=== PATIENT | female | born 1955 | race Caucasian/White ===

== ENCOUNTER 2016-09-03 19:28 | Emergency (ER) | payer MEDICAID ==
[~2016-09-03] VITALS: Ht 157.5 cm; Wt 70.0 kg
[~2016-09-03 19:28] MED LIST: ACET-141 PO; ASPI-535 PO; CALCIUM PO; CIPR-193 PO; HYDR-3498 PO; METR250T PO; NORVASC PO; ONDA4TAB8 PO; [UNRECOGNIZED DRUG - REMARK] PO
[2016-09-03 19:32] VITALS: Ht 157.5 cm; Wt 70.0 kg
[2016-09-03] MEDS ORDERED: morphine 2 MG INJ IV STA (23:21)
[2016-09-03] MEDS ORDERED: SOD CHLORIDE 0.9% 500 ML IV STA (23:21)
[2016-09-03] MEDS ORDERED: ONDANSETRON 4 MG INJ IV STA (23:21)
--- NOTE | 2016-09-04 00:14 | RADRPT ---
PROCEDURE: XR Chest. CLINICAL INDICATION: Chest pain. TECHNIQUE: Portable AP upright view of the chest was obtained. COMPARISON: 06/26/2014 FINDINGS: The cardiomediastinal silhouette is within normal limits. The lungs are clear. There is no evidenc e for pleural effusion, pneumothorax or pulmonary vascular congestion. The osseous structures are i ntact with no evidence for acute abnormality. RPTAT:HJJR IMPRESSION: No evidence for acute intrathoracic pathology or interval change from 06/26/2014. Physician Tabatha Date Time Electronically viewed and signed by Alvarado Cooper Physician on 09/04/2016 00:13 JR/
[2016-09-04 00:29] LABS: ADD SCAN DIFF NO
[2016-09-04 00:30] LABS: BASOPHIL # 0.1 10^3/ul (0.0-0.1); BASOPHILS % 0.5 % (0.0-2.0); EOSINOPHILS # 1.2 10^3/ul (0.0-0.5); EOSINOPHILS % 11.2 % (0.0-7.0); HEMATOCRIT 36.2 % (37.0-47.0); HEMOGLOBIN 11.3 g/dl (12.0-16.0); LYMPHOCYTES # 3.9 10^3/ul (0.8-2.9); LYMPHOCYTES % 35.3 % (15.0-51.0); MEAN CORPUSCULAR HEMOGLOBIN 26.3 pg (29.0-33.0); MEAN CORPUSCULAR HGB CONC 31.2 g/dl (32.0-37.0); MEAN CORPUSCULAR VOLUME 84.4 fl (82.0-101.0); MEAN PLATELET VOLUME 10.6 fl (7.4-10.4); MONOCYTE # 0.8 10^3/ul (0.3-0.9); MONOCYTES % 7.4 % (0.0-11.0); NEUTROPHILS % 45.2 % (39.0-77.0); PLATELET COUNT 502 10^3/UL (140-415); RED BLOOD COUNT 4.29 10^6/ul (4.20-5.40); RED CELL DISTRIBUTION WIDTH 14.4 % (11.5-14.5); WHITE BLOOD COUNT 10.9 10^3/ul (4.8-10.8)
[2016-09-04 00:31] LABS: ADD UMIC NO; URINE BILIRUBIN (Dip) NEGATIVE (NEGATIVE); URINE BLOOD (Dip) NEGATIVE (NEGATIVE); URINE COLOR LT. YELLOW (YELLOW); URINE GLUCOSE (Dip) NEGATIVE (NEGATIVE); URINE KETONES (Dip) NEGATIVE (NEGATIVE); URINE LEUKOCYTE ESTERASE (Dip) NEGATIVE (NEGATIVE); URINE NITRITE (Dip) NEGATIVE (NEGATIVE); URINE TOTAL PROTEIN (Dip) NEGATIVE (NEGATIVE); URINE UROBILINOGEN (Dip) 0.2 E.U./dL (0.1-1.0)
[2016-09-04 00:38] LABS: INR 0.92; PROTIME 12.4 Sec (12.2-14.2)
[2016-09-04 00:39] LABS: PARTIAL THROMBOPLASTIN TIME 29.3 Sec (25.0-35.0)
[2016-09-04 00:40] LABS: ALANINE AMINOTRANSFERASE 17 IU/L (13-69); ALBUMIN 4.6 g/dl (3.3-4.9); ALBUMIN/GLOBULIN RATIO 1.12; ALKALINE PHOSPHATASE 109 IU/L (42-121); ANION GAP 13 (8-16); ASPARTATE AMINO TRANSFERASE 28 IU/L (15-46); BILIRUBIN,INDIRECT 0.2 mg/dl (0-1.1); BILIRUBIN,TOTAL 0.2 mg/dl (0.2-1.3); BLOOD UREA NITROGEN 18 mg/dl (7-20); CALCIUM 9.7 mg/dl (8.4-10.2); CARBON DIOXIDE 26 mmol/L (21-31); CHLORIDE 106 mmol/L (97-110); CREATININE 0.86 mg/dl (0.44-1.00); GLUCOSE 129 mg/dl (70-220); POTASSIUM 3.7 mmol/L (3.5-5.1); SODIUM 141 mmol/L (135-144); TOTAL PROTEIN 8.7 g/dl (6.1-8.1)
[2016-09-04 00:52] LABS: B-TYPE NATRIURETIC PEPTIDE 136 PG/ML (0-125)
[2016-09-04] MEDS ORDERED: hydrALAzine 20 MG INJ IV ONE (01:00)
[2016-09-04 01:07] LABS: TROPONIN-I < 0.012 ng/ml (0.00-0.12)
--- NOTE | 2016-09-04 01:58 | RADRPT ---
PROCEDURE: CT Brain without contrast. CLINICAL INDICATION: Altered level of consciousness. TECHNIQUE: A CT of the brain was performed on a multislice detector CT scanner utilizing axial sec tions from the skull base through the vertex without contrast. Images were reviewed on a high-resolu [employer] PACS workstation. Exam CTDlvol = 45 mGy and DLP = 720 mGy-cm. One of the following 3 dose red uction techniques were used: Automated exposure control; adjustment of the mA and/or kV according to patient size; or use of iterative reconstruction technique. COMPARISON: None available FINDINGS: There is age appropriate central and peripheral atrophy. There is no midline shift. There is small left parietal subcortical white matter hypodensity. There is no definite acute stroke. There is n o intracranial hemorrhage or abnormal extra-axial fluid collection. There is right maxillary sinus and bilateral ethmoid air cell mucosal thickening.. IMPRESSION: 1. No acute intracranial abnormality. 2. Minimal left parietal white matter changes most commonly seen with microvascular ischemic diseas e. 3. Mild paranasal sinus disease. RPTAT: HMVK .Yovanny Montague MD, Date Time Electronically viewed and signed by .Yovanny Montague MD, on 09/04/2016 01:58 .K/
--- NOTE | 2016-09-04 02:01 | ERD ---
ER Documentation Chief Complaint Date/Time DATE: 09/04/16 TIME: 02:00 Chief Complaint DIZZY/AVILA SINCE , +CP/SOB +PAINFUL URINATION HPI This is a 6) a headache since . Is also mildly painful urination as well. Denies any fevers or chills. Denies any other current complaints. She said she felt dizzy with the room spinning. Denies any focal neurological complaints. Denies any changes in visual acuity. Denies any palpitations. Denies any other current issues. Patient denies chest pain initially stated in triage. ROS All systems reviewed and are negative except as per history of present illness. Medications Home Meds Active Scripts Hydralazine Hcl* (Hydralazine Hcl*) 50 Mg Tab, 50 MG PO Q8, #90 TAB Prov:JONNA HALEGerardo 09/04/16 Reported Medications Acetaminophen* (Acetaminophen*) 500 MG Extra Strength Tablet, 500 MG PO Q4H Y for PAIN, TAB 07/16/14 [Stomach Med Otc] No Conflict Check, PO 07/16/14 [Norvasc] No Conflict Check, PO 07/16/14 [Calcium] No Conflict Check, PO 15 Aspirin Ec (Aspir 81) 81 Mg Tablet.dr, 81 MG PO DAILY, TAB 07/16/14 Ciprofloxacin Hcl* (Ciprofloxacin Hcl*) Unknown Strength Tablet, PO BID, TAB 11/29/13 Metronidazole* (Flagyl*) Unknown Strength Tablet, PO Q6, TAB 14 Ondansetron Hcl* (Zofran*) Unknown Strength Tablet, PO Q6H Y for NAUSEA AND OR VOMITING, TAB 11/29/13 Hydrocodone Bit-Acetaminophen* ([place]*) Unknown Strength Tab, PO Q4H Y for PAIN , TAB 11/29/13 Allergies Allergies: Coded Allergies: No Known Allergy (Unverified , 11/29/13) PMhx/Soc History of Surgery: Yes (HYSTERECTOMY, LEFT LUMPECTOMY) Anesthesia Reaction: No Hx Neurological Disorder: No Hx Respiratory Disorders: No Hx Cardiac Disorders: Yes (HIGH CHOLESTEROL, HTN) Hx Psychiatric Problems: No Hx Miscellaneous Medical Probl: No Hx Alcohol Use: No Hx Substance Use: No Hx Tobacco Use: No Smoking Status: Never smoker Physical Exam Vitals Vital Signs Date Time Temp Pulse Resp B/P Pulse Ox O2 Delivery O2 Flow Rate FiO2 09/04/16 04:43 82 18 141/77 98 Room Air 86 148/79 09/04/16 04:41 71 16 141/69 99 Room Air 09/04/16 03:58 67 18 149/67 100 Nasal Cannula 2.0 09/04/16 03:25 57 28 64/40 100 Room Air 09/04/16 02:54 98.7 73 17 146/65 99 Room Air 09/04/16 00:30 99.0 67 20 195/91 99 Room Air 09/03/16 19:32 99.2 89 20 173/88 100 Physical Exam Const: [] Head: Atraumatic Eyes: Normal Conjunctiva ENT: Normal External Ears, Nose and Mouth. Neck: Full range of motion..~ No meningismus. Resp: Clear to auscultation bilaterally Cardio: Regular rate and rhythm, no murmurs Abd: Soft, non tender, non distended. Normal bowel sounds Skin: No petechiae or rashes Back: No midline or flank tenderness Ext: No cyanosis, or edema Neur: Awake and alert Psych: Normal Mood and Affect Result Diagram: 09/03/16 2356 09/03/16 2356 Results 24 hrs Laboratory Tests Test 09/03/16 23:56 White Blood Count 10.910^3/ul Red Blood Count 4.2910^6/ul Hemoglobin 11.3g/dl Hematocrit 36.2% Mean Corpuscular Volume 84.4fl Mean Corpuscular Hemoglobin 26.3pg Mean Corpuscular Hemoglobin Concent 31.2g/dl Red Cell Distribution Width 14.4% Platelet Count 02838^3/UL Mean Platelet Volume 10.6fl Neutrophils % 45.2% Lymphocytes % 35.3% Monocytes % 7.4% Eosinophils % 11.2% Basophils % 0.5% Nucleated Red Blood Cells % 0.0/100WBC Neutrophils # 5.010^3/ul Lymphocytes # 3.910^3/ul Monocytes # 0.810^3/ul Eosinophils # 1.210^3/ul Basophils # 0.110^3/ul Nucleated Red Blood Cells # 0.010^3/ul Prothrombin Time 12.4Sec Prothrombin Time Ratio 1.0 INR International Normalized Ratio 0.92 Activated Partial Thromboplast Time 29.3Sec Urine Color LT. YELLOW Urine Clarity CLEAR Urine pH 6.0 Urine Specific [place] 1.025 Urine Ketones NEGATIVE Urine Nitrite NEGATIVE Urine Bilirubin NEGATIVE Urine Urobilinogen 0.2 E.U./dL Urine Leukocyte Esterase NEGATIVE Urine Hemoglobin NEGATIVE Urine Glucose NEGATIVE% Urine Total Protein NEGATIVE Sodium Level 141mmol/L Potassium Level 3.7mmol/L Chloride Level 106mmol/L Carbon Dioxide Level 26mmol/L Anion Gap 13 Blood Urea Nitrogen 18mg/dl Creatinine 0.86mg/dl Glucose Level 129mg/dl Calcium Level 9.7mg/dl Total Bilirubin 0.2mg/dl Direct Bilirubin 0.00mg/dl Indirect Bilirubin 0.2mg/dl Aspartate Amino Transf (AST/SGOT) 28IU/L Alanine Aminotransferase (ALT/SGPT) 17IU/L Alkaline Phosphatase 109IU/L Troponin I < 0.012ng/ml B-Type Natriuretic Peptide 136PG/ML Total Protein 8.7g/dl Albumin 4.6g/dl Globulin 4.10g/dl Albumin/Globulin Ratio 1.12 Current Medications Medications (Trade) Dose Ordered Sig/Roseanna Route PRN Reason Start Time Stop Time Status Last Admin Dose Admin Sodium Chloride (NS) 500 ml @ 500 mls/hr Q1H STAT IV 09/03/16 23:21 09/04/16 00:20 DC 09/04/16 00:08 Morphine Sulfate (morphine) 2 mg ONCE STAT IV 09/03/16 23:21 09/03/16 23:22 DC 09/04/16 00:08 Ondansetron HCl (Zofran Inj) 4 mg ONCE STAT IV 09/03/16 23:21 09/03/16 23:22 DC 09/04/16 00:08 Hydralazine HCl 10 mg 10 mg ONCE ONCE IV 09/04/16 01:00 09/04/16 01:01 DC 09/04/16 01:45 Sodium Chloride (NS) 1,000 ml @ 1,000 mls/hr Q1H ONCE IV 09/04/16 03:30 09/04/16 04:29 DC 09/04/16 03:37 Ondansetron HCl (Zofran Inj) 4 mg ONCE STAT IV 09/04/16 05:02 09/04/16 05:09 DC 09/04/16 05:13 Procedures/MDM EKG: Rate/Rhythm: Normal Sinus Rhythm QRS, ST, T-waves: No changes consistent w/ acute ischemia Impression: No evidence of ischemia or arrhythmia Chest X-ray 1V Interpreted by me: Soft Tissue: No acute abnormalities Bones: No acute abnormalities Mediastinum/Cardiac Silhouette/Lungs: No acute abnormalities Patient's thoracic symptoms have stabilized while in the department and are stable for outpatient follow up. Exam and work up not consistent w/ ischemia, arrhythmia, PE or dissection. Patient's neurologic symptoms have stabilized while they have been evaluated in the department and are appropriate for outpatient work up. No e/o meningitis, intracranial bleed, seizure, stroke. Patient symptomology likely secondary to elevated blood pressure. Patient was discharged on hydralazine. Follow-up with PMD. Return for worsening symptoms. Patient had a near syncopal episode upon discharge in the [facility]. At this point patient is brought back in. At this point patient will be admitted for near syncope to hospitalist. Departure Diagnosis: Primary Impression: Dizziness Additional Impression: Syncope Syncope type: unspecified Qualified Code: R55 - Syncope, unspecified syncope type Condition: Serious JONNA HALE Sep 04, 2016 02:00
[2016-09-04] MEDS ORDERED: APR50 PO (02:12)
[2016-09-04] MEDS ORDERED: SOD CHLORIDE 0.9% 1,000 ML IV ONE (03:30)
[2016-09-04] MEDS ORDERED: ONDANSETRON 4 MG INJ IV STA (05:02)
[2016-09-04] MEDS ORDERED: NACL 0.9% 3 ML SYG IV SCH (07:00)
[2016-09-04] MEDS ORDERED: ONDANSETRON 4 MG INJ IV PRN (07:00)
[2016-09-04] MEDS ORDERED: NITROGLYCERIN (SL) 0.4 MG TAB SL PRN (07:00)
[2016-09-04] MEDS ORDERED: morphine 2 MG INJ IV PRN (07:00)
[2016-09-04] MEDS ORDERED: ACETAMINOPHEN 325 MG TAB PO PRN (07:00)
[2016-09-04] MEDS ORDERED: ALBUTEROL/IPRATROPIUM (NEB) 3 ML AMP HHN PRN (07:00)
[2016-09-04 08:06] LABS: ADD SCAN DIFF NO
[2016-09-04 08:18] LABS: BASOPHILS % 0.3 % (0.0-2.0); EOSINOPHILS # 0.8 10^3/ul (0.0-0.5); EOSINOPHILS % 6.5 % (0.0-7.0); HEMATOCRIT 35.5 % (37.0-47.0); HEMOGLOBIN 10.9 g/dl (12.0-16.0); LYMPHOCYTES # 3.2 10^3/ul (0.8-2.9); LYMPHOCYTES % 25.3 % (15.0-51.0); MEAN CORPUSCULAR HEMOGLOBIN 26.2 pg (29.0-33.0); MEAN CORPUSCULAR HGB CONC 30.7 g/dl (32.0-37.0); MEAN CORPUSCULAR VOLUME 85.3 fl (82.0-101.0); MEAN PLATELET VOLUME 10.9 fl (7.4-10.4); MONOCYTE # 0.7 10^3/ul (0.3-0.9); MONOCYTES % 5.5 % (0.0-11.0); NEUTROPHIL # 7.9 10^3/ul (1.6-7.5); NEUTROPHILS % 61.9 % (39.0-77.0); PLATELET COUNT 437 10^3/UL (140-415); RED BLOOD COUNT 4.16 10^6/ul (4.20-5.40); RED CELL DISTRIBUTION WIDTH 14.6 % (11.5-14.5); WHITE BLOOD COUNT 12.7 10^3/ul (4.8-10.8)
[2016-09-04 08:43] LABS: ALANINE AMINOTRANSFERASE 18 IU/L (13-69); ALBUMIN 4.1 g/dl (3.3-4.9); ALBUMIN/GLOBULIN RATIO 1.07; ALKALINE PHOSPHATASE 105 IU/L (42-121); ANION GAP 11 (8-16); ASPARTATE AMINO TRANSFERASE 30 IU/L (15-46); BILIRUBIN,INDIRECT 0.3 mg/dl (0-1.1); BILIRUBIN,TOTAL 0.3 mg/dl (0.2-1.3); BLOOD UREA NITROGEN 14 mg/dl (7-20); CALCIUM 9.3 mg/dl (8.4-10.2); CARBON DIOXIDE 23 mmol/L (21-31); CHLORIDE 111 mmol/L (97-110); CHOL/HDL RATIO 3.2 RATIO; CHOLESTEROL 211 mg/dl (100-200); CREATINE KINASE 57 IU/L (23-200); CREATININE 0.72 mg/dl (0.44-1.00); GLUCOSE 105 mg/dl (70-220); HDL CHOLESTEROL 65 mg/dl (35-98); MAGNESIUM 2.1 mg/dl (1.7-2.5); SODIUM 141 mmol/L (135-144); TOTAL PROTEIN 7.9 g/dl (6.1-8.1); TRIGLYCERIDES 126 mg/dl (0-149)
[2016-09-04 08:50] LABS: CK-MB 0.58 ng/ml (0.0-2.4)
[2016-09-04 08:52] LABS: TROPONIN-I < 0.012 ng/ml (0.00-0.12)
[2016-09-04] MEDS ORDERED: ASPIRIN 81 MG TAB PO SCH (09:00)
[2016-09-04] MEDS ORDERED: ENOXAPARIN 40 MG/0.4 ML SYG SC SCH (09:00)
[2016-09-04 09:48] VITALS: BP 148/91; PULSE 95; RESP 16; TEMP 98.2
--- NOTE | 2016-09-04 10:00 | RADRPT ---
PROCEDURE: US Carotids. CLINICAL INDICATION: Dizziness TECHNIQUE: Multiple sonographic of the carotid arteries were obtained utilizing gunderson scale imaging . Color and Doppler imaging was performed. The images were reviewed on a PACS workstation. COMPARISON: No prior studies are available for comparison. FINDINGS: Location Right Left CCA 68 cm/sec 70 cm/sec Prox ICA 59 cm/sec 52 cm/sec Mid ICA 63 cm/sec 60 cm/sec Dist ICA 59 cm/sec 63 cm/sec ECA 73 cm/sec 62 cm/sec ICA/CCA 1.4 1.1 Antegrade flow is seen within the vertebral arteries bilaterally. No significant plaque is seen with in the carotid system bilaterally. No hemodynamically significant stenosis or occlusion is identifi ed. IMPRESSION: 1. No evidence for hemodynamically significant stenosis - validated velocity measurements with angio graphic measurements, velocity criteria are extrapolated from diameter data as defined by the Societ y of Radiologists in Ultrasound Consensus Conference Radiology 2003; 229;340-346. This study does i ndirectly reference the measurement of the distal ICA diameter as the denominator for stenosis measu rement. 2. Antegrade flow seen within the vertebral arteries bilaterally. SRU Consensus Conference Criteria for the Diagnosis of Carotid Artery Stenosis Degree of Stenosis, % ICA PSV, cm/sec Plaque Estimate, % ICA/CCA PSV Ratio Normal <125 None <2.0 <50 <125 <50 <2.0 50 69 125-230 >50 2.0-4.0 >70 but less than near occlusion >230 >50 <4.0 Near occlusion High, low, or undetectable Visible Variable Total occlusion Undetectable Visible, no detectable lumen Not applicable *Cartoid artery stenosis: gunderson-scale and Doppler US diagnosis. Society of Radiologists in Ultrasound Consensus Conference. Radiology 2003; 229: 340-346 RPTAT: JJ .Miguel Hilliard MD, Date Time Electronically viewed and signed by .Miguel Hilliard MD, on 09/04/2016 10:00 .A/
--- NOTE | 2016-09-04 12:22 | PDOCDIS ---
Discharge Instructions CONDITION Patient Condition: Stable HOME CARE INSTRUCTIONS: Diet Instructions: Low Fat /Cholesterol ACTIVITY: Activity Restrictions: Slowly Increase Activity FOLLOW UP/APPOINTMENTS Appointments Please take your medications, see your doctor in the clinic in 1 week. ANA BARBA Sep 04, 2016 12:22
--- NOTE | 2016-09-04 12:47 | DS ---
DATE OF ADMISSION: 09/03/2016 DATE OF DISCHARGE: 09/04/2016 HOSPITAL COURSE: A 60-year-old female originally admitted on 09/04/2016 being discharged home on . The patient came in with dizziness symptoms for the last few days. She also had some mil d chest pain, and she was admitted. Her first 2 troponins were negative. She had no significant EK G changes. If her third troponin is negative, because she is having less chest pain, she might be d ischarged home later today. Regarding her headache symptoms, she had a head CT performed, as she wa s also having dizziness symptoms, and the head CT was negative for any acute intracranial abnormalit ies. She also had carotid Doppler studies performed that showed no evidence of any hemodynamically significant stenosis bilaterally. Over the course of her hospital stay, her white count was slightl y elevated, but she had no fevers. The rest of her labs were normal. She was able to ambulate and tolerate a p.o. diet. She had less headache and dizziness symptoms, and less chest pain symptoms an d if the third troponin is negative, she will be discharged home today in improved condition. If she goes today, she will be sent with hydralazine 50 mg p.o. q. 8 hours. She will continue that. She will follow up with her primary care doctor in the clinic in the next 1 to 2 weeks. FINAL DIAGNOSES: 1. Headache and dizziness, ruled out for acute stroke with negative carotid Doppler studies as well and negative head CT results. 2. Chest pain, currently being ruled out for acute coronary syndrome. 3. Mild dizziness symptoms, resolved. 4. Prior history of left lumpectomy and hysterectomy. 5. High cholesterol. 6. Essential hypertension. Time spent discharging patient 40 minutes. Dictated By: ANA FUENTES Conf#: [id number] DID#: [id number]
[2016-09-04 12:58] LABS: CREATINE KINASE 55 IU/L (23-200)
[2016-09-04 13:12] LABS: CK-MB 0.44 ng/ml (0.0-2.4)
[2016-09-04 13:16] LABS: TROPONIN-I < 0.012 ng/ml (0.00-0.12)
--- NOTE | 2016-09-04 17:59 | RADRPT ---
Echocardiogram Report Patient Name: NIC CARNES Gender: Female Date: 1955 Study Date: 04-Sep-2016 Service Center Manager: [facility] Location: [facility] Ref. Physician: JONNA JENKINS Quality: Good Procedures: Transthoracic echocardiogram with complete 2D, M-Mode, and doppler examination. Indications: NEAR Syncope. 2D/M Mode Doppler Measurement Value Normal Ranges Measurement Value Normal Ranges LVIDd 2D 4.2 3.5 - 5.6 cm AV Peak Rebel 1.1 m/sec LVIDs 2D 3.0 2.1 - 4.1 cm AV Peak PG 4.7 mmHg LVPWd 2D 0.9 0.6 - 1.1 cm LVOT Peak Rebel 0.9 m/sec IVSd 2D 0.9 0.6 - 1.1 cm LVOT Peak PG 2.9 mmHg AoR Diam 2D 2.3 2.0 - 3.7 cm MV E Peak Rebel 0.7 m/sec EDV 2D 80.2 cm3 MV A Peak Rebel 0.8 m/sec ESV 2D 26.2 cm3 MV E/A 0.9 MV Decel Time 180 msec MV Decel [place] 4 MV E/A 0.9 Findings Left Ventricle: Normal left ventricular systolic function. Normal left ventricular cavity size. Normal left ventricular wall thickness. Ejection fraction is visually estimated at 65 %. Tissue Doppler/Mitral Doppler indices are within normal limits. Right Ventricle: Normal right ventricular size. Normal right ventricular systolic function. Left Atrium: The left atrium is normal in size. Right Atrium: The right atrium is normal in size. Mitral Valve: Trace mitral regurgitation. Aortic Valve: Trace to mild aortic valve regurgitation. Tricuspid Valve: Tricuspid valve not well visualized. Unable to obtain RVSP due to minimal presence of tricuspid regurgitation. There is trace tricuspid regurgitation. Pulmonic Valve: There is trace pulmonic regurgitation. Pericardium: Normal pericardium with no significant pericardial effusion. Aorta: Normal aortic root. IVC: Normal size and normal respiratory collapse consistent with normal right atrial pressure. Conclusions 1.Normal left ventricular systolic function. Normal left ventricular cavity size. Normal left ventricular wall thickness. Ejection fraction is visually estimated at 65 %. Tissue Doppler/Mitral Doppler indices are within normal limits. 2.No significant valvular stenosis or regurgitation seen. 3.Unable to obtain RVSP due to minimal presence of tricuspid regurgitation. RA pressure is 3 mmHg. Electronically Signed By: Mauro Wilson 04-Sep-2016 17:59:11 -0700 Patient Name: NIC CARNES Study Date: 04-Sep-2016 [id number]
== END 2016-09-04 14:14 | disposition home or self-care (01) ==
LOC: E/R 19:28
DX: R42 Dizziness and giddiness (principal); R55 Syncope and collapse; I10 Essential (primary) hypertension; Z79.82 Long term (current) use of aspirin
CPT/HCPCS: 36415; 70450; 71010; 80053; 80061; 81003; 82550; 82553; 83036; 83735; 83880; 84443; 84484; 85025; 85610; 85730; 93005; 93306; 93880; 96372; 96374; 96375; 96376; J0360; J1650; J2270; J2405; J7030; J7040; Z7502; Z7610

== ENCOUNTER 2017-08-14 08:47 | Day surgery (SDC) | END 2017-08-14 14:50 | disposition home or self-care (01) ==